=== PATIENT | female | born 1980 | race Caucasian/White ===

== ENCOUNTER 2017-06-03 12:18 | Emergency (ER) | payer OTHER ==
[2017-06-03 12:23] VITALS: BP 162/88; PULSE 80; RESP 16; TEMP 98; O2SAT 100
[2017-06-03] MEDS ORDERED: Sodium Chloride 0.9% 1,000 ML IV STA (14:10)
--- NOTE | 2017-06-03 14:14 | ED PDOC ---
HPI: Back Time Seen by Provider: 06/03/17 13:06 Chief Complaint (Nursing): Back Pain Chief Complaint (Provider): Back Pain History Per: Patient Additional Complaint(s): 36 yo female, PMH of renal colic, presents to ED with complaints of vomiting, Left sided flank pain radiating to LLQ abdominal area x 1 day. No fever or chills. Pain began around 11 am today. Past Medical History Reviewed: Historical Data, Nursing Documentation, Vital Signs Vital Signs: Last Vital Signs Temp 98.0 F 06/03/17 12:23 Pulse 80 06/03/17 12:23 Resp 16 06/03/17 12:23 BP 162/88 H 06/03/17 12:23 Pulse Ox 100 06/03/17 12:23 - Medical History PMH: Anxiety, Depression, Kidney Stones (10 years ago, no interventions necessary; no history of kidney infection) Denies: Diabetes, Hepatitis, HIV, HTN, Chronic Kidney Disease, Seizures, Sexually Transmitted Disease - Surgical History Surgical History: No Surg Hx - Family History Family History: States: Unknown Family Hx - Living Arrangements Living Arrangements: With Family - Social History Current smoker - smoking cessation education provided: No Alcohol: None Drugs: Denies - Home Medications Home Medications: Ambulatory Orders Medication Instructions Recorded FLUoxetine [Prozac] 20 mg PO HS 12/19/15 QUEtiapine [SEROquel] 50 mg PO HS 12/19/15 Ascorbic Acid [Vitamin C] 500 mg PO BID #0 tab 12/20/15 Ciprofloxacin [Cipro] 500 mg PO BID #20 tab 12/20/15 Ketorolac Tromethamine [Toradol] 10 mg PO Q6 #0 tab 12/20/15 Tamsulosin HCl [Flomax] 0.4 mg PO DAILY #0 cap.er.24h 12/20/15 oxyCODONE/Acetaminophen [Percocet 1 ea PO Q6 PRN #20 tab 12/20/15 5/325 mg Tab] Cephalexin [cephalexin] 500 mg PO BID 7 Days cap 06/03/17 Tamsulosin [Flomax] 0.4 mg PO DAILY #10 cap 06/03/17 oxyCODONE/Acetaminophen [Percocet 1 ea PO Q6 PRN #10 tab 06/03/17 5/325 mg Tab] - Allergies Allergies/Adverse Reactions: Allergies Allergy/AdvReac Type Severity Reaction Status Date / Time No Known Allergies Allergy Verified 12/19/15 17:19 Review of Systems ROS Statement: Except As Marked, All Systems Reviewed And Found Negative Gastrointestinal: Positive for: Nausea, Abdominal Pain Physical Exam - Reviewed Nursing Documentation Reviewed: Yes Vital Signs Reviewed: Yes - Physical Exam Appears: Positive for: Well, Non-toxic, No Acute Distress, Uncomfortable Head Exam: Positive for: ATRAUMATIC, NORMAL INSPECTION, NORMOCEPHALIC Skin: Positive for: Normal Color, Warm, DRY Eye Exam: Positive for: EOMI, Normal appearance, PERRL ENT: Positive for: Normal ENT Inspection Neck: Positive for: Normal, Painless ROM Cardiovascular/Chest: Positive for: Regular Rate, Rhythm Respiratory: Positive for: CNT, Normal Breath Sounds Gastrointestinal/Abdominal: Positive for: Bowel Sounds, Soft, Tenderness (left flank) Back: Positive for: Normal Inspection, L CVA Tenderness Extremity: Positive for: Normal ROM Neurologic/Psych: Positive for: Alert, Oriented - Laboratory Results Result Diagrams: 06/03/17 14:52 06/03/17 14:52 - ECG O2 Sat by Pulse Oximetry: 100 Medical Decision Making Medical Decision Making: IV access established and treatment initiated with IVF, Toradol and Zofran Labs resulted and reviewed with pt who demonstrated full understanding. WBC 13.5 UA (+) large blood and 24 WBC IV Rocephin started IMPRESSION: 4-5 millimeter distal 3rd left ureteral calculus with mild left hydronephrosis. A number of other scattered smaller nonobstructing calculi are appreciated. Moderate diffuse fatty infiltration of the liver. Nonspecific scattered mesenteric lymph nodes, unchanged Pt educated on all results and demonstrated full understanding. Pt doing well on re-eval. No complaints of pain. Given urology follow up. Advised take medications as directed. return to ED if at anytime condition worsens Disposition - Clinical Impression Clinical Impression: Renal colic, Hydronephrosis - Patient ED Disposition Is Patient to be Admitted: No - Disposition Referrals: Garfield Baires Jr., MD [Staff Provider] - Disposition: Routine/Home Disposition Time: 15:45 Condition: STABLE Prescriptions: Cephalexin [cephalexin] 500 mg PO BID 7 Days cap oxyCODONE/Acetaminophen [Percocet 5/325 mg Tab] 1 ea PO Q6 PRN #10 tab PRN Reason: Pain, Severe (8-10) Tamsulosin [Flomax] 0.4 mg PO DAILY #10 cap Instructions: Renal Colic (ED), Hydronephrosis (ED) Forms: [facility] ([place]estinian)
[2017-06-03 14:56] LABS: BASO # 0.2 K/uL (0.0-0.2); BASO % 1.2 % (0.0-2.0); EOS # 1.2 K/uL (0.0-0.7); EOS % 8.6 % (0.0-4.0); HEMOGLOBIN 12.9 g/dL (12.0-16.0); LYMPH # 2.2 K/uL (1.0-4.3); LYMPH % 16.3 % (20.0-40.0); MEAN CELL VOLUME 81.6 fl (81.0-99.0); MEAN CORPUSCULAR HEMOGLOBIN 25.7 pg (27.0-31.0); MEAN CORPUSCULAR HGB CONC 31.5 g/dL (33.0-37.0); MONO # 0.6 K/uL (0.0-0.8); MONO % 4.4 % (0.0-10.0); NEUT # 9.4 K/uL (1.8-7.0); NEUT % 69.5 % (50.0-75.0); RBC 5.03 Mil/uL (3.80-5.20); RED CELL DISTRIBUTION WIDTH 15.3 % (11.5-14.5); WHITE BLOOD COUNT 13.5 K/uL (4.8-10.8)
[2017-06-03 15:40] LABS: SQUAMOUS EPITHIAL 1 /hpf (0-5); URINE BILIRUBIN NEGATIVE (NEGATIVE); URINE BLOOD LARGE (NEGATIVE); URINE CLARITY CLOUDY (Clear); URINE COLOR YELLOW (YELLOW); URINE GLUCOSE (UA) NEG (Normal); URINE LEUKOCYTE ESTERASE NEG Leu/uL (Negative); URINE NITRATE NEGATIVE (NEGATIVE); URINE PROTEIN 100 mg/dL (NEGATIVE); URINE UROBILINOGEN 0.2-1.0 mg/dL (0.2-1.0)
[2017-06-03 16:01] LABS: ALBUMIN 4.4 g/dL (3.5-5.0); ALT/SGPT 47 U/L (9-52); AMYLASE 112 U/L (30-110); AST/SGOT 37 U/L (14-36); BLOOD UREA NITROGEN 12 mg/dl (7-17); CALCIUM 9.4 mg/dL (8.4-10.2); GFR AFRICAN-AMERICAN > 60; GFR NON-AFRICAN AMERICAN > 60; LIPASE 73 U/L (23-300)
[2017-06-03 16:32] LABS: ALB/GLOB RATIO 1.1 (1.0-2.1)
--- NOTE | 2017-06-03 17:11 | CT ---
PROCEDURE: CT Abdomen and Pelvis without intravenous contrast HISTORY: left renal colic COMPARISON: None. TECHNIQUE: Technique. Contrast Dose: No contrast was administered. Radiation dose: Total exam DLP = 1406 mGy-cm. This CT exam was performed using one or more of the following dose reduction techniques: Automated exposure control, adjustment of the mA and/or kV according to patient size, and/or use of iterative reconstruction technique. FINDINGS: LOWER THORAX: No appreciable infiltrate is noted. Minor atelectasis is seen. No pleural effusion is noted. No pericardial effusion is seen. Small hiatal hernia is noted, and the esophagus is otherwise unremarkable. LIVER: Moderate diffuse fatty infiltration without new focal liver mass. GALLBLADDER AND BILE DUCTS: Unremarkable. PANCREAS: Unremarkable. No gross lesion or ductal dilatation. SPLEEN: Unremarkable. ADRENALS: Unremarkable. No mass. KIDNEYS AND URETERS: There is evidence of mild left hydronephrosis and hydroureter extending to the distal 3rd of the left ureter with there is evidence of a 4-5 mm left ureteral calculus seen on axial image 71 series 2. Mild periureteral changes and minor left perinephric changes are noted. Distal to this region the left ureter is unremarkable. No right ureteral calculus was seen. A few nonobstructing other smaller bilateral renal calculi are noted. VASCULATURE: Unremarkable. No aortic aneurysm. BOWEL: Unremarkable. No obstruction. No gross mural thickening. APPENDIX: Unremarkable. Normal appendix. PERITONEUM: Unremarkable. No free fluid. No free air. LYMPH NODES: There are a number of stable scattered mesenteric lymph nodes appreciated, greatest in the right lower quadrant and nonspecific. BLADDER: Unremarkable. REPRODUCTIVE: Unremarkable. BONES: No acute fracture. OTHER FINDINGS: None. IMPRESSION: 4-5 millimeter distal 3rd left ureteral calculus with mild left hydronephrosis. A number of other scattered smaller nonobstructing calculi are appreciated. Moderate diffuse fatty infiltration of the liver. Nonspecific scattered mesenteric lymph nodes, unchanged
== END 2017-06-03 20:20 | disposition home or self-care (01) ==
LOC: H.ER 12:18
DX: N13.2 Hydronephrosis with renal and ureteral calculous obstruction (principal); N23 Unspecified renal colic; F32.9 Major depressive disorder, single episode, unspecified; F41.9 Anxiety disorder, unspecified; K76.0 Fatty (change of) liver, not elsewhere classified
CPT/HCPCS: 74176; 80053; 81003; 81025; 82150; 83690; 85025; 96374; 99285; J0696; J1885; J2405; J7040